=== PATIENT | female | born 1955 | race Hispanic/Latino ===

== ENCOUNTER 2019-03-01 09:29 | Day surgery (SDC) | payer MEDICARE ==
[~2019-03-01] VITALS: Ht 157.5 cm; Wt 78.0 kg
[~2019-03-01 09:29] MED LIST: ALBU6.7H IH; AMLO-104 PO; ASPI-555 PO; ATOR80TA PO; FLUT16H NASAL; LEVO112T7 PO; SODIUM CHLORIDE 0.9% 1000ML 1,000 ML IV ONE
[2019-03-01 10:24] VITALS: BP 119/41
[2019-03-01 12:09] VITALS: BP 94/55
[2019-03-01 12:15] VITALS: BP 102/61
[2019-03-01 12:23] VITALS: BP 116/56
[2019-03-01 12:30] VITALS: BP 109/63
[2019-03-01 12:40] VITALS: BP 124/64
== END 2019-03-01 12:48 | disposition home or self-care (01) ==
LOC: ENDO 09:29 → DAH 09:29 → ENDO 12:48
PROVIDERS: ATTEND Internal Medicine
DX: D12.2 Benign neoplasm of ascending colon (principal); D12.3 Benign neoplasm of transverse colon; K57.30 Diverticulosis of large intestine without perforation or abscess without bleeding; K64.8 Other hemorrhoids; Z86.010 Personal history of colon polyps; K64.9 Unspecified hemorrhoids; E78.5 Hyperlipidemia, unspecified; I25.10 Atherosclerotic heart disease of native coronary artery without angina pectoris; E03.9 Hypothyroidism, unspecified; I10 Essential (primary) hypertension; K21.9 Gastro-esophageal reflux disease without esophagitis; Z79.82 Long term (current) use of aspirin; Z79.899 Other long term (current) drug therapy; Z85.850 Personal history of malignant neoplasm of thyroid; Z95.0 Presence of cardiac pacemaker; Z90.12 Acquired absence of left breast and nipple; Z90.710 Acquired absence of both cervix and uterus; Z88.5 Allergy status to narcotic agent
CPT/HCPCS: 45380; 45385; 88305; A4606; J7030

== ENCOUNTER → 2024-03-01 | Outpatient (CLI) | payer OTHER ==
[~2024-03-01] MED LIST changes: -ALBU6.7H IH; +ALBU6.7H14 IH; -ASPI-555 PO; +ASPI-556 PO; -SODIUM CHLORIDE 0.9% 1000ML 1,000 ML IV ONE
[2024-03-01 12:26] LABS: ALBUMIN 3.4 g/dL (3.5-5.0); BILIRUBIN,TOTAL 0.3 mg/dL (0.2-1.0); CREATININE 0.9 mg/dL (0.5-1.0); TOTAL PROTEIN, SERUM 6.9 g/dL (6.0-8.3)
== END | disposition home or self-care (01) ==
LOC: LAB 08:20
PROVIDERS: ATTEND Internal Medicine Cardiovascular Disease
DX: I10 Essential (primary) hypertension (principal); I25.10 Atherosclerotic heart disease of native coronary artery without angina pectoris; E78.5 Hyperlipidemia, unspecified
CPT/HCPCS: 36415; 80053; 80061